=== PATIENT | female | born 1985 | race Caucasian/White ===

== ENCOUNTER 2020-06-29 16:35 | Outpatient (RCR) | payer BC, SELFPAY ==
[2020-05-18 18:02] VITALS: BP 130/75; PULSE 87
[2020-05-24 10:08] VITALS: BP 119/75; PULSE 90
[2020-06-01 10:17] VITALS: BP 119/75; PULSE 90
[2020-06-07 10:22] VITALS: BP 117/71; PULSE 86
[2020-06-14 13:42] VITALS: BP 121/73; PULSE 69
[2020-06-21 11:44] VITALS: BP 127/83; PULSE 83
--- NOTE | ~2020-06-29 | US_ITS ---
EXAMINATION: US OB limited w BPP EXAM DATE: 06/07/2020 10:42 INDICATION: Non reactive stress test for elevated bp's. Check TALIA and biophysical profile. 3rd trime ster. TECHNIQUE: Pelvic obstetrical transabdominal sonogram was performed by a technologist. There are mu ltiple grayscale and Doppler images available for interpretation. There are no earlier studies of th is gestation for comparison. FINDINGS: There is a single fetus identified in vertex presentation with a heart rate of 127 beats pe r minute. The placenta is located in the anterior position. There is no sonographic evidence of retr oplacental hemorrhage identified. Some placental venous lakes. The amniotic fluid index is 18.0 centi meters, which is normal. Cervical canal measures 5.7 cm in length, no funneling. BIOPHYSICAL PROFILE (performed by the technologist) breathing (30 sec sustained breathing in 30 minutes): 2 out of 2 movement (3 gross body movements in 30 minutes): 2 out of 2 tone (one episode of twbjkoz-vrdcyoszh-xcqrzkh limb movement): 2 out of 2 Amniotic fluid pocket (2 cm): 2 out of 2 Total score: 8 out of 8 IMPRESSION: 1. Single fetus with heart rate of 127 bpm. 2. Normal biophysical profile score of 8 out of 8. 3. Normal TALIA 18 cm. Reviewed, dictated and finalized at location A.
--- NOTE | ~2020-06-29 | US_ITS ---
EXAMINATION: US OB follow up w BPP DATE: 06/21/2020 12:17 INDICATION: Gestational hypertension. Third trimester. TECHNIQUE: Real-time pelvic ultrasound was performed. COMPARISON: Ultrasound 06/07/2020 FINDINGS: There is a single living fetus in vertex presentation. The placenta is anterior. heart rate is 144 beats per minute (bpm). The amniotic fluid index is 17.6 cm, which is normal. The following biometric data were obtained: Biparietal diameter (BPD): 9.5 cm; head circumference (HC): 33.9 cm; abdominal circumference (AC): 33 .9 cm; femur length (FL): 7.0 cm. These measurements are concordant. Estimated weight is 3251 g +/- 488 g, which correlates with 75th percentile when 07/13/20 is use d as estimated date of delivery. As single measurements, these parameters are each equal to the following estimated gestational ages: BPD: 38 weeks 4 days. HC: 39 weeks 0 days. AC: 37 weeks 6 days. FL: 35 weeks 6 days. estimated gestational age based solely on measurements from this exam is 37 weeks 6 days +/- 2 weeks 5 days. Biophysical profile performed by the technologist: breathing (30 sec sustained breathing in 30 minutes): 2 out of 2 movement (3 gross body movements in 30 minutes): 2 out of 2 tone (one episode of zfougro-upzseyvpf-ylgdtec limb movement): 2 out of 2 Amniotic fluid pocket (2 cm): 2 out of 2 Total score: 8 out of 8 IMPRESSION: 1. Single living fetus in vertex presentation. 2. Biophysical profile 8 out of 8. 3. Estimated weight is 3251 g +/- 488 g, which correlates with 75th percentile when 07/13/20 is used as estimated date of delivery. Reviewed, dictated and finalized at location A. IMPRESSION: 1. Single living fetus in vertex presentation. 2. Biophysical profile 8 out of 8. 3. Estimated weight is 3251 g +/- 488 g, which correlates with 75th perc entile when 07/13/20 is used as estimated date of delivery.
[2020-06-29 18:02] VITALS: BP 135/78; PULSE 87
== END 2020-07-25 11:50 | disposition home or self-care (01) ==
LOC: ANHOBOP 16:35
PROVIDERS: PCP Obstetrics & Gynecology; Visit Provider Obstetrics & Gynecology
DX: O16.3 Unspecified maternal hypertension, third trimester (principal); Z3A.32 32 weeks gestation of pregnancy; Z3A.34 34 weeks gestation of pregnancy; Z3A.35 35 weeks gestation of pregnancy; Z3A.36 36 weeks gestation of pregnancy; Z3A.38 38 weeks gestation of pregnancy
CPT/HCPCS: 59025; 76815; 76816; 76819

== ENCOUNTER 2020-07-03 17:12 | Inpatient (IN) | payer BC, SELFPAY ==
[2020-07-03] VITALS (12 sets, daily range): BP systolic 125–142; BP diastolic 66–94; PULSE 67–106; RESP 18; TEMP 36.8–37.1; O2SAT 99; BMI 43.9
--- NOTE | 2020-07-03 17:12 | LDADM ---
This patient, Katlin Clarke, was admitted to Labor/Delivery/Recovery 108 on 07/03/20 at 17:12. Plans for labor, pain management and were discussed with patient. Patient/family oriented to hospital policies and general routines including ID bracelet, bed and alarms, visiting hours, pain management, procedures, bathroom and other care routines, personal items, smoking policy, room service/diet and guest tray routines, security routines, and visiting hours. Patient/Family are encouraged to report perceived risks to care and to ask questions if they do not understand what they are told or what they should do. See OBIX for further documentation.
[2020-07-03] MEDS: DINOPROSTONE 10 MG VAG INSERT VAGINAL (17:53)
[2020-07-03 17:58] LABS: Basophils Percent Auto 0.3 % (0.2-1.2); Eosinophils Absolute Auto 0.1 K/mm3 (0-0.3); Eosinophils Percent Auto 0.6 % (0-4.4); Hematocrit 35.9 % (37.0-47.0); Hemoglobin 12.1 g/dL (12.0-15.0); Immature Granulocyte Absolute 0.09 K/mm3 (0.00-0.031); Immature Granulocyte Percent A 0.7 % (0-0.5); Lymphocytes Absolute Auto 3.08 K/mm3 (0.9-3.2); Lymphocytes Percent Auto 25.4 % (18.3-44.2); Mean Corpuscular HGB Conc 33.7 g/dl (32-36); Mean Corpuscular Hemoglobin 29.9 pg (26-34); Mean Corpuscular Volume 88.6 fl (80-100); Mean Platelet Volume 10.9 fl (7.4-10.4); Monocytes Absolute Auto 0.5 K/mm3 (0.1-0.6); Monocytes Percent Auto 4.5 % (2.6-8.5); Neutrophils Absolute Auto 8.3 K/mm3 (1.3-6.7); Neutrophils Percent Auto 68.5 % (45.5-73.1); Platelet Count Result 287 k/mm3 (150-375); Red Blood Count 4.05 M/mm3 (4.2-5.4); Red Cell Distribution Width 12.6 % (11.5-14.5); White Blood Count 12.1 K/mm3 (4.5-10.0)
[2020-07-03 18:07] LABS: Uric Acid 3.9 mg/dL (2.5-7.5)
[2020-07-03 18:30] LABS: Alanine Aminotransferase 14 U/L (4-35); Albumin Level 3.6 g/dL (3.5-5.1); Alkaline Phosphatase 142 U/L (38-126); Anion Gap 6 mmol/L (8-16); Aspartate Amino Transferase 25 U/L (14-36); Bilirubin,Total 0.7 mg/dL (0.2-1.3); Blood Urea Nitrogen 6 mg/dL (7-17); Calcium 10.1 mg/dL (8.4-10.2); Carbon Dioxide 23 mmol/L (22-30); Chloride 106 mmol/L (98-107); Estimated CRCL calculation 176 ml/min; Estimated Glomerular Filt Rate > 60; Glucose 123 mg/dL (65-105); Potassium 3.9 mmol/L (3.4-5.0); Sodium 135 mmol/L (137-145)
[2020-07-03] MEDS: LABETALOL HCL 100 MG TABLET PO (21:47)
[2020-07-04] VITALS (132 sets, daily range): BP systolic 90–154; BP diastolic 42–120; PULSE 67–117; RESP 17–18; TEMP 36.2–36.8; O2SAT 89–100
[2020-07-04] MEDS: LACTATED RINGERS 1,000 ML 125 ML IV CONT ×2 (05:10→14:06)
[2020-07-04] MEDS: OXYTOCIN 30 UNITS/NS 500 ML 30 UNITS/500 ML BAG IV CONT ×2 (05:11→14:05)
[2020-07-04] MEDS: fentaNYL CITRATE INJ (*CRX) 100 MCG/2 ML VIAL 50 MCG IV PUSH (05:18)
--- NOTE | 2020-07-04 05:59 | WPDANESEPP ---
Anes - Eval Pre Procedure Procedure: Labor epidural Date/Time: 07/04/20 05:59 Surgeon: Josias Preop Diagnosis: pain during labor Pre Op Diagnosis: Induction of Labor Patient Data Age: 35 Gender: F Height: 1.68 m Weight: 123.6 kg Last Vital Signs Temp 36.7 C 07/04/20 04:56 Pulse 81 07/04/20 05:45 Resp 18 07/04/20 00:02 BP 136/87 07/04/20 05:45 Pulse Ox 99 07/03/20 21:47 Allergies Allergy/AdvReac Type Severity Reaction Status Date / Time No Known Allergies Allergy Verified 05/18/20 17:07 Home Medications Medication Instructions Recorded Confirmed Type PNV cmb#95-ferrous fumarate-FA 1 tablet PO HS 05/18/20 07/03/20 History [] labetalol 100 mg PO Q12H 05/18/20 07/03/20 History Laboratory Tests 07/03/20 07/03/20 07/03/20 17:46 17:46 17:46 WBC 12.1 K/mm3 H K/mm3 (4.5-10.0) RBC 4.05 M/mm3 L M/mm3 (4.2-5.4) Hgb 12.1 g/dL g/dL (12.0-15.0) Hct 35.9 % L % (37.0-47.0) MCV 88.6 fl fl (80-100) MCH 29.9 pg pg (26-34) MCHC 33.7 g/dl g/dl (32-36) RDW 12.6 % % (11.5-14.5) Plt Count 287 k/mm3 k/mm3 (150-375) MPV 10.9 fl H fl (7.4-10.4) Immature Gran % (Auto) 0.7 % H % (0-0.5) Neut % (Auto) 68.5 % % (45.5-73.1) Lymph % (Auto) 25.4 % % (18.3-44.2) [place] % (Auto) 4.5 % % (2.6-8.5) Eos % (Auto) 0.6 % % (0-4.4) Baso % (Auto) 0.3 % % (0.2-1.2) Lymph # (Auto) 3.08 K/mm3 K/mm3 (0.9-3.2) [place] # (Auto) 0.5 K/mm3 K/mm3 (0.1-0.6) Eos # (Auto) 0.1 K/mm3 K/mm3 (0-0.3) Baso # (Auto) 0.0 K/mm3 K/mm3 (0.0-0.1) Abs Immat Gran (auto) 0.09 K/mm3 H K/mm3 (0.00-0.031) Absolute Neuts (auto) 8.3 K/mm3 H K/mm3 (1.3-6.7) Absolute Nucleated RBC 0.0 K/mm3 K/mm3 (0.0-0.012) Nucleated RBC % 0.0 % % (0.0-0.2) Sodium Potassium Chloride Carbon Dioxide Anion Gap BUN Creatinine Estim Creat Clear Calc Estimated GFR Glucose Uric Acid 3.9 mg/dL mg/dL (2.5-7.5) Calcium Total Bilirubin AST ALT Alkaline Phosphatase Total Protein Albumin RPR Pending Blood Type Antibody Screen 07/03/20 07/03/20 17:46 17:46 WBC RBC Hgb Hct MCV MCH MCHC RDW Plt Count MPV Immature Gran % (Auto) Neut % (Auto) Lymph % (Auto) [place] % (Auto) Eos % (Auto) Baso % (Auto) Lymph # (Auto) [place] # (Auto) Eos # (Auto) Baso # (Auto) Abs Immat Gran (auto) Absolute Neuts (auto) Absolute Nucleated RBC Nucleated RBC % Sodium 135 mmol/L L mmol/L (137-145) Potassium 3.9 mmol/L mmol/L (3.4-5.0) Chloride 106 mmol/L mmol/L (98-107) Carbon Dioxide 23 mmol/L mmol/L (22-30) Anion Gap 6 mmol/L L mmol/L (8-16) BUN 6 mg/dL L mg/dL (7-17) Creatinine 0.50 mg/dL L mg/dL (0.7-1.0) Estim Creat Clear Calc 176 ml/min ml/min Estimated GFR > 60 (59 - ) Glucose 123 mg/dL H mg/dL (65-105) Uric Acid Calcium 10.1 mg/dL mg/dL (8.4-10.2) Total Bilirubin 0.7 mg/dL mg/dL (0.2-1.3) AST 25 U/L U/L (14-36) ALT 14 U/L U/L (4-35) Alkaline Phosphatase 142 U/L H U/L (38-126) Total Protein 7.0 g/dL g/dL (6.3-8.2) Albumin 3.6 g/dL g/dL (3.5-5.1) RPR Blood Type O Positive Antibody Screen Negative Patient hx anesthesia problems: none Family hx anes
--- NOTE | 2020-07-04 08:38 | WPDOBADMIT ---
Obstetrics - Admit Note Admission Note: record reviewed. Additions to the history and/or subsequent changes in the physical findings follow. 35 y/o at 38 5/7 weeks here for induction of labor. Has CHTN with worsening bp control. No headache, no visual field change. No epigastric or RUQ pain. IVF . GBS neg. EFW 7#11oz three weeks ago. Cervidil overnight, has been withdrawn. AVSS NST reactive TOCO: contractions every 2-4 min ABD soft, nontender, gravid, vertex EXT nontender Cervix 3/80/-2. AROM witih clear fluid. IUPC placed. A: IUP at 38 5/7 weeks with CHTN, worsening bp control, here for induction of labor. P: Cervidil has been withdrawn. Oxytocin running. Anticipate .
[2020-07-04] MEDS: LABETALOL HCL 100 MG TABLET PO ×2 (08:59→21:02)
--- NOTE | 2020-07-04 11:56 | PM.OBPNLAB ---
Pain Control Date/time seen: 07/04/20 11:56 Comments: Comfortable with epidural Pelvic Exam Dilation (cm): 7 Effacement (%): 100 station: 0 Contractions Contraction frequency: 3 Contraction pattern: Regular Status status: Category l Assessment and Plan Comments: Continue labor.
--- NOTE | 2020-07-04 13:46 | PM.OBPRVD ---
OB - Delivery Note Procedure Delivery date: 07/04/20 Procedure: Induction of labor with Excision of vulvar skin tags x 4 Induction method: per pitocin protocol and per cervidil protocol Delivery augmentation: rupture of membranes Delivery monitor: external FHT, external uterine and internal uterine Route of delivery: Delivery repair: vicryl (3-0) Specimen: Yes (cord blood, placenta, perineal skin tags x 4) Quantitative Blood Loss (ml): 95 Anesthesia type: Epidural Disposition: PACU Complications: None Narrative: 35 y/o at 38 5/7 weeks gestation who presented to the hospital for induction of labor. Cervidil was placed overnight, was withdrawn the next morning. Oxytocin was administered intravenously. Amniotomy was performed with return of clear fluid. She received an epidural for pain control. Her labor progressed and her cervix dilated completely. She pushed with good effort and delivered the 's head to the perineum, followed by the body. The nose and mouth were bulb suctioned. After a delay, the cord was clamped and cut. The was handed off the field. Cord blood was collected. The placenta delivered spontaneously and was grossly normal in appearance. The usual 3 vessel cord was noted. A distal vaginal laceration was sustained. This was reapproximated using 3 0 Vicryl in the usual layered fashion. Excellent hemostasis resulted as did excellent reapproximation of the normal anatomy. Four vulvar skin tags (two were 2mm x 2mm, two were 4mm x 2mm) were sharply excised. The two larger defects required one interrupted suture of 3 0 Vicryl. Needle and instrument counts were correct. The patient was taken to recovery room in stable condition. The went to the nursery in stable condition. I was present and scrubbed for the entire delivery. Baby Date of : 07/04/20 Time of : 13:25 Weeks of gestation at delivery: 38 gender: Female Weight (pounds): 8 Weight (ounces): 15 presentation: vertex position: Right Occiput Anterior Placenta delivery description: Spontaneous and Normal Configuration cord vessel description: 3 Vessels and Delayed Cord Clamping score one minute: 9 score five minutes: 9
--- NOTE | 2020-07-04 13:51 | PM.OBDSVD ---
DS: Admitting Diagnosis Admitting Diagnosis Admitting Diagnosis: IUP at 38 5/7 weeks Chronic HTN with worsening bp control DS: Discharge Diagnosis Discharge Diagnosis (1) (normal spontaneous vaginal delivery): Code(s): O80 - Encounter for full-term uncomplicated delivery Status: Acute (2) Skin tag of vulva: Code(s): N90.89 - Other specified noninflammatory disorders of vulva and perineum Status: Acute OB - DS: Summary OB Procedures : None OB Procedures Intrapartum: Spontaneous Vag Delivery OB Procedures: : None Time Spent with Patient Time attestation: Total time spent providing and/or coordinating discharge services: DS: Data Data Completed and Pending Labs on day of discharge: Labs from last 24 hours 07/03/20 07/03/20 07/03/20 17:46 17:46 17:46 WBC RBC Hgb Hct MCV MCH MCHC RDW Plt Count MPV Immature Gran % (Auto) Neut % (Auto) Lymph % (Auto) [place] % (Auto) Eos % (Auto) Baso % (Auto) Lymph # (Auto) [place] # (Auto) Eos # (Auto) Baso # (Auto) Abs Immat Gran (auto) Absolute Neuts (auto) Absolute Nucleated RBC Nucleated RBC % Sodium 135 L Potassium 3.9 Chloride 106 Carbon Dioxide 23 Anion Gap 6 L BUN 6 L Creatinine 0.50 L Estim Creat Clear Calc 176 Estimated GFR > 60 Glucose 123 H Uric Acid Calcium 10.1 Total Bilirubin 0.7 AST 25 ALT 14 Alkaline Phosphatase 142 H Total Protein 7.0 Albumin 3.6 RPR Pending Blood Type O Positive Antibody Screen Negative 07/03/20 07/03/20 17:46 17:46 WBC 12.1 H RBC 4.05 L Hgb 12.1 Hct 35.9 L MCV 88.6 MCH 29.9 MCHC 33.7 RDW 12.6 Plt Count 287 MPV 10.9 H Immature Gran % (Auto) 0.7 H Neut % (Auto) 68.5 Lymph % (Auto) 25.4 [place] % (Auto) 4.5 Eos % (Auto) 0.6 Baso % (Auto) 0.3 Lymph # (Auto) 3.08 [place] # (Auto) 0.5 Eos # (Auto) 0.1 Baso # (Auto) 0.0 Abs Immat Gran (auto) 0.09 H Absolute Neuts (auto) 8.3 H Absolute Nucleated RBC 0.0 Nucleated RBC % 0.0 Sodium Potassium Chloride Carbon Dioxide Anion Gap BUN Creatinine Estim Creat Clear Calc Estimated GFR Glucose Uric Acid 3.9 Calcium Total Bilirubin AST ALT Alkaline Phosphatase Total Protein Albumin RPR Blood Type Antibody Screen Discharge Plan Discharge Attending physician on discharge: Elliott Ferrara Discharging Clinician: Elliott Ferrara Patient Disposition: Home, Self-Care Activity: pelvic rest Diet: regular Discharge Instructions: Call or return if temperature above 100.4? F, increased abdominal pain, increased vaginal bleeding or any new problems. Stand Alone Forms: General Discharge Information Follow-up/Referrals: Elliott Ferrara MD [Primary Care Provider] - 6 Weeks Discharge Medications: New ibuprofen 600 mg tablet 600 mg PO Q6H PRN (Reason: cramps) Qty: 30 RF: 0 Continued labetalol 100 mg Tablet 100 mg PO Q12H RF: 0 PNV cmb#95-ferrous fumarate-FA [] 28 mg iron- 800 mcg Tablet 1 tablet PO HS RF: 0 Date of admission: 07/03/20 17:12 Primary Care Provider: Elliott Ferrara Admitting Provider: Elliott Ferrara Attending physician on admission: Elliott Ferrara Condition: Stable
[2020-07-04] MEDS: WITCH HAZEL 40 PADS 1 PAD TOPICAL (15:25)
[2020-07-04] MEDS: BENZOCAINE 20% AER SPR (*SP) 56 GM CAN 1 SPRAY TOPICAL (15:26)
--- NOTE | 2020-07-04 16:56 | OBPPTRN ---
1555 Patient transferred to post room #282 via W/C. Support person present. Oriented to unit, room, information board, rooming in, admission packet and security measures. Patient verbalizes understanding.
[2020-07-04] MEDS: IBUPROFEN 600 MG TABLET PO (21:01)
[2020-07-05 05:30] VITALS: BP 140/95; PULSE 78; RESP 18; TEMP 37
[2020-07-05 05:47] LABS: Hematocrit 32.8 % (37.0-47.0); Hemoglobin 10.6 g/dL (12.0-15.0)
[2020-07-05 07:45] VITALS: BP 142/87; PULSE 80; RESP 16; TEMP 36.6; O2SAT 99
[2020-07-05 08:21] VITALS: PULSE 96
[2020-07-05] MEDS: LABETALOL HCL 100 MG TABLET PO ×2 (08:21→21:06)
[2020-07-05] MEDS: MULTIVIT/MIN/PREN/FOL AC/IRON TABLET 1 TAB PO (08:21)
[2020-07-05] MEDS: DOCUSATE SODIUM 100 MG CAPSULE PO (08:21)
[2020-07-05] MEDS: IBUPROFEN 600 MG TABLET PO ×3 (08:22→22:13)
--- NOTE | 2020-07-05 08:55 | PM.OBPNVD ---
OB - PN: Subj Subjective Date/time seen: 07/05/20 13:25 Narrative: Pain OK. OB - PN: Obj Data Labs CBC & Chem 7: 07/05/20 05:36 07/03/20 17:46 Labs: Laboratory Results - last 24 hr 07/03/20 05 17:46 05:36 Hgb 10.6 L Hct 32.8 L RPR Non-reactive OB - PN A/P Plan Comments: A: PPD#1, doing well. P: Routine care. Exam Psych: Other: AVSS ABD soft, nontender, fundus firm EXT nontender
[2020-07-05 10:20] LABS: Rapid Plasma Reagin Non-Reactive (NonReactive)
--- NOTE | 2020-07-05 10:54 | WPDANLDPN2 ---
Anes-Prog Note L&D Date/Time: 07/05/20 10:54 Comfortable throughout: labor and delivery Neuraxial method: epidural Epidural/Spinal procedure site: clean & non-tender Neuro status: Neuro function grossly intact. Cardiovascular status: normal Respiratory status: normal Airway patency: baseline Mental status: baseline Post-Op hydration status: normal Vital Signs: Last Vital Signs Temp 36.6 C 07/05/20 07:45 Pulse 96 07/05/20 08:21 Resp 16 07/05/20 07:45 BP 142/87 H 07/05/20 07:45 Pulse Ox 99 07/05/20 07:45 Pain score (VAS): 0/10. Patient resting in bed at time of assessment, appears comfortable. Support person at bedside. I/O: Intake & Output 07/04/20 07/05/20 07/05/20 23:59 07:59 15:59 Intake Total 1000 1000 Output Total 75 1150 Balance 925 -150 Post-procedural complaints: none Patient feedback: Patient satisfied with anesthetic care.
[2020-07-05 12:30] VITALS: BP 139/73; PULSE 82; RESP 16; TEMP 37.3; O2SAT 99
--- NOTE | 2020-07-05 12:30 | PC.NURSE ---
Consult with pt., mother reports she would like to initiate pumping. Mother did not attempt first child to breast, mother attempted this child a few times and does not like and would like to give infant EBM. Breast pump provided due to mother's wishes. Instructions given on breast pump care and usage, pumping schedule, nipple care, and collection and storage of breast milk. Encouraged [id number], breast massage and manual expression to stimulate supply. Pumping log provided and reviewed. Assessed patient for correct flange size, placement and draw. Patient verbalizes and demonstrates understanding of instructions.
[2020-07-05 14:45] VITALS: BP 134/79; PULSE 86; RESP 18; TEMP 36.9; O2SAT 98
--- NOTE | 2020-07-05 16:17 | PC.NURSE ---
Patient and FOB viewed the discharge video Mother & Baby Care, The First Two Weeks . Patient was given the opportunity and encouraged to ask questions. Patient verbalized understanding of information shared and has been given the mother/baby guide for home reference.
[2020-07-05 21:06] VITALS: BP 132/86; PULSE 74; PULSE 81; RESP 16; TEMP 36.8
[2020-07-06 08:25] VITALS: BP 135/80; PULSE 83; RESP 16; TEMP 36.8; O2SAT 99
[2020-07-06] MEDS: DOCUSATE SODIUM 100 MG CAPSULE PO (08:42)
[2020-07-06] MEDS: MULTIVIT/MIN/PREN/FOL AC/IRON TABLET 1 TAB PO (08:42)
[2020-07-06] MEDS: IBUPROFEN 600 MG TABLET PO (08:42)
[2020-07-06 08:44] VITALS: PULSE 81
[2020-07-06] MEDS: LABETALOL HCL 100 MG TABLET PO (08:44)
--- NOTE | 2020-07-06 08:58 | PM.OBPNVD ---
OB - PN: Subj Subjective Date/time seen: 07/06/20 08:58 Narrative: Pain OK. Would like to go home. OB - PN: Obj Data Labs CBC & Chem 7: 07/05/20 05:36 07/03/20 17:46 Labs: Laboratory Results - last 24 hr 07/03/20 17:46 RPR Non-reactive OB - PN A/P Plan Comments: A: PPD#2, doing well. P: Home to f/u 6 weeks. Exam Psych: Other: AVSS ABD soft, nontender, fundus firm EXT nontender
[2020-07-07 10:36] VITALS: BP 140/81; PULSE 75; RESP 20; TEMP 37.1; O2SAT 100
== END 2020-07-06 11:30 | disposition home or self-care (01) | DRG 806 ==
LOC: ANHLDR 07-04 13:53 → ANHOB2 07-04 15:58
PROVIDERS: Admitting Provider Obstetrics & Gynecology; PCP Obstetrics & Gynecology; Visit Provider Obstetrics & Gynecology
DX: O10.92 Unspecified pre-existing hypertension complicating childbirth (principal); O71.4 Obstetric high vaginal laceration alone; N90.89 Other specified noninflammatory disorders of vulva and perineum; Z37.0 Single live birth; Z3A.38 38 weeks gestation of pregnancy
CPT/HCPCS: 36415; 80053; 84550; 85014; 85018; 85025; 86592; 86850; 86900; 86901; 88305; 88307; A9270; J2590; J2795; J3010; J7120

== ENCOUNTER 2022-12-03 18:09 | Inpatient (IN) | payer BC, SELFPAY ==
[2022-12-03 18:47] VITALS: BMI 41.9
--- NOTE | 2022-12-03 18:47 | LDADM ---
This patient, Katlin Clarke, was admitted to Labor/Delivery/Recovery 106 on 12/03/22 at 18:09. Plans for labor, pain management and were discussed with patient. Patient/family oriented to hospital policies and general routines including ID bracelet, bed and alarms, visiting hours, pain management, procedures, bathroom and other care routines, personal items, smoking policy, room service/diet and guest tray routines, security routines, and visiting hours. Patient/Family are encouraged to report perceived risks to care and to ask questions if they do not understand what they are told or what they should do. See OBIX for further documentation.
[2022-12-03] MEDS: DINOPROSTONE 10 MG VAG INSERT VAGINAL (19:04)
[2022-12-03 19:12] LABS: Basophils Percent Auto 0.4 % (0.2-1.2); Eosinophils Absolute Auto 0.1 K/mm3 (0-0.3); Eosinophils Percent Auto 0.6 % (0-4.4); Hematocrit 36.3 % (37.0-47.0); Hemoglobin 11.9 g/dL (12.0-15.0); Immature Granulocyte Absolute 0.05 K/mm3 (0.00-0.031); Immature Granulocyte Percent A 0.5 % (0-0.5); Lymphocytes Absolute Auto 2.65 K/mm3 (0.9-3.2); Lymphocytes Percent Auto 26.1 % (18.3-44.2); Mean Corpuscular HGB Conc 32.8 g/dl (32-36); Mean Corpuscular Hemoglobin 29.3 pg (26-34); Mean Corpuscular Volume 89.4 fl (80-100); Mean Platelet Volume 11.6 fl (7.4-10.4); Monocytes Absolute Auto 0.6 K/mm3 (0.1-0.6); Monocytes Percent Auto 5.4 % (2.6-8.5); Neutrophils Absolute Auto 6.8 K/mm3 (1.3-6.7); Platelet Count Result 286 k/mm3 (150-375); Red Blood Count 4.06 M/mm3 (4.2-5.4); Red Cell Distribution Width 12.8 % (11.5-14.5); White Blood Count 10.2 K/mm3 (4.5-10.0)
[2022-12-03 19:21] LABS: Alanine Aminotransferase 16 U/L (6-35); Albumin Level 3.6 g/dL (3.5-5.1); Alkaline Phosphatase 138 U/L (38-126); Anion Gap 7 mmol/L (8-16); Aspartate Amino Transferase 23 U/L (14-36); Blood Urea Nitrogen 7 mg/dL (7-17); Carbon Dioxide 23 mmol/L (22-30); Chloride 104 mmol/L (98-107); Estimated CRCL calculation 143 ml/min; Estimated Glomerular Filt Rate > 60; Glucose 102 mg/dL (65-110); Sodium 134 mmol/L (137-145)
[2022-12-03 19:22] VITALS: BP 127/70; PULSE 92
[2022-12-03 20:00] VITALS: BP 130/77; PULSE 76
[2022-12-03 21:00] VITALS: BP 134/85; PULSE 98
[2022-12-03 21:42] VITALS: PULSE 88
[2022-12-03] MEDS: LABETALOL HCL 100 MG TABLET 200 MG PO (21:42)
[2022-12-03 22:00] VITALS: BP 133/82; PULSE 87
[2022-12-03 23:00] VITALS: BP 101/49; PULSE 76
[2022-12-04] VITALS (89 sets, daily range): BP systolic 84–148; BP diastolic 38–102; PULSE 63–101; RESP 16–18; TEMP 36.1–36.7; O2SAT 96–100
[2022-12-04] MEDS: LACTATED RINGERS 1,000 ML 125 ML IV CONT ×2 (05:29→10:17)
[2022-12-04] MEDS: OXYTOCIN 30 UNITS/NS 500 ML 30 UNITS/500 ML BAG IV CONT (05:30)
--- NOTE | 2022-12-04 08:45 | WPDOBADMIT ---
Obstetrics - Admit Note Admission Note: record reviewed. Additions to the history and/or subsequent changes in the physical findings follow. 37 y/o at 38 6/7 weeks with chronic hypertension, on labetalol. GBS neg. Feeling some contractions. AVSS NST reactive TOCO: irregular contractions ABD soft, nontender, gravid, vertex EXT nontender Cervix 3/80/-2. AROM with clear fluid. A: IUP at 38 6/7 weeks with CHTN, here for induction. P: Cervidil overnight, has been removed. Now receiving oxytocin. Anticipate .
--- NOTE | 2022-12-04 10:07 | WPDANESEPPF ---
Anes - Initial Pre Proc Eval Procedure: Labor epidural Date/Time: 12/04/22 10:07 Surgeon: Elliott Ferrara MD Pre Op Diagnosis: Pain during labor Pre Op Diagnosis: IOL Patient Data Age: 37 Gender: F Height: 1.68 m Weight: 117.934 kg Last Vital Signs Temp 36.7 C 12/04/22 10:00 Pulse 88 12/04/22 10:05 Resp 16 12/04/22 05:15 BP 112/76 12/04/22 10:05 Pulse Ox 98 12/04/22 10:06 O2 Del Method Room Air 12/03/22 18:47 Allergies Allergy/AdvReac Type Severity Reaction Status Date / Time No Known Allergies Allergy Verified 05/18/20 17:07 Home Medications Medication Instructions Recorded Confirmed Type labetalol 100 mg tablet 200 mg PO Q12H 05/18/20 12/03/22 History vit no.95-ferrous 1 tablet PO HS 05/18/20 12/03/22 History fumarate 28 mg-folic acid 800 mcg tablet () aspirin 81 mg tablet 81 mg PO DAILY 12/03/22 12/03/22 History Laboratory Tests 12/03/22 18:26 WBC 10.2 H K/mm3 (4.5-10.0) RBC 4.06 L M/mm3 (4.2-5.4) Hgb 11.9 L g/dL (12.0-15.0) Hct 36.3 L % (37.0-47.0) MCV 89.4 fl (80-100) MCH 29.3 pg (26-34) MCHC 32.8 g/dl (32-36) RDW 12.8 % (11.5-14.5) Plt Count 286 k/mm3 (150-375) MPV 11.6 H fl (7.4-10.4) Immature Gran % (Auto) 0.5 % (0-0.5) Neut % (Auto) 67.0 % (45.5-73.1) Lymph % (Auto) 26.1 % (18.3-44.2) [place] % (Auto) 5.4 % (2.6-8.5) Eos % (Auto) 0.6 % (0-4.4) Baso % (Auto) 0.4 % (0.2-1.2) Lymph # (Auto) 2.65 K/mm3 (0.9-3.2) [place] # (Auto) 0.6 K/mm3 (0.1-0.6) Eos # (Auto) 0.1 K/mm3 (0-0.3) Baso # (Auto) 0.0 K/mm3 (0.0-0.1) Abs Immat Gran (auto) 0.05 H K/mm3 (0.00-0.031) Absolute Neuts (auto) 6.8 H K/mm3 (1.3-6.7) Absolute Nucleated RBC 0.0 K/mm3 (0.0-0.012) Nucleated RBC % 0.0 % (0.0-0.2) Sodium 134 L mmol/L (137-145) Potassium 4.0 mmol/L (3.4-5.0) Chloride 104 mmol/L (98-107) Carbon Dioxide 23 mmol/L (22-30) Anion Gap 7 L mmol/L (8-16) BUN 7 mg/dL (7-17) Creatinine 0.60 L mg/dL (0.7-1.0) Estim Creat Clear Calc 143 ml/min Estimated GFR > 60 (59 - ) Glucose 102 mg/dL (65-110) Uric Acid 4.0 mg/dL (2.5-7.5) Calcium 9.0 mg/dL (8.4-10.2) Total Bilirubin 1.0 mg/dL (0.2-1.3) AST 23 U/L (14-36) ALT 16 U/L (6-35) Alkaline Phosphatase 138 H U/L (38-126) Total Protein 7.0 g/dL (6.3-8.2) Albumin 3.6 g/dL (3.5-5.1) RPR Pending Blood Type O Positive Antibody Screen Negative Patient hx anesthesia problems: none Family hx anesthesia problems: none Results Review: All pre-operative results and documents have been reviewed as part of the pre-operative evaluation. [facility] Past Medical History Medical History Gestational HTN IUP (intrauterine ), incidental Morbid obesity with BMI of 40.0-44.9, adult Family History Family History Mother Scoliosis Hypertension Father COPD (chronic obstructive pulmonary disease) Social History Social History Smoking status: Never smoker Second hand tobacco smoke exposure: No Substance use: never Lack of Transportation: No Lack of Food: Never True Current Housing: I Have Housing Concerned About Future Housing: No Difficulty Paying Gas/Electric Bills: No Difficulty Paying for Meds: No Currently Unemployed: No Education: Trade/Vocational Certificate Difficulty w/ Childcare or Family Care: No Gender identity (if verbalized by the patient): Female Spiritual care concerns: No Anes - Eval Final PreProcedure Day of Procedure 12/04/22 10:07 Patient weight: morbidly obese Heart: regular rate and rhythm Lungs: clear to auscultation Airway: Vin
[2022-12-04 10:43] LABS: Rapid Plasma Reagin Non-Reactive (NonReactive)
--- NOTE | 2022-12-04 11:54 | PM.OBPRVD ---
OB - Delivery Note Procedure Delivery date: 12/04/22 Procedure: Induction of labor with Events: Chronic Hypertension Induction method: Per Cervidil Protocol Delivery augmentation: Rupture of Membranes and Pitocin Delivery monitor: External FHT and External Uterine Route of delivery: Laceration Description: None Specimen: Yes (cord blood) Quantitative Blood Loss (ml): 120 Anesthesia type: Epidural Disposition: PACU Complications: None Narrative: 37 y/o at 38 6/7 weeks gestation who presented to the hospital for induction of labor. Cervidil was placed overnight, then withdrawn the next morning. Oxytocin was administered intravenously. Amniotomy was performed with return of clear fluid. She received an epidural for pain control. Her labor progressed and her cervix dilated completely. She pushed with good effort and delivered the 's head to the perineum. A loose nuchal cord was splinted and the body delivered. The cord was reduced. The nose and mouth were bulb suctioned. After a delay, the cord was clamped and cut. The was handed off the field. Cord blood was collected. The placenta delivered spontaneously and was grossly normal in appearance. The usual 3 vessel cord was noted. There were no lacerations. Needle and instrument counts were correct. The patient was taken to recovery room in stable condition. The went to the nursery in stable condition. I was present and scrubbed for the entire delivery. [place] Baby Date of : 12/04/22 Time of : 11:37 Weeks of gestation at delivery: 38 Infant gender: Female Weight (pounds): 8 Weight (ounces): 13 presentation: vertex position: Right Occiput Anterior Placenta delivery description: Spontaneous and Normal Configuration Cord Vessel Description: 3 Vessels, Nuchal Cord and Delayed Cord Clamping score one minute: 8 score five minutes: 9
--- NOTE | 2022-12-04 11:56 | PM.OBDSVD ---
DS: Admitting Diagnosis Discharge Date 12/06/22 Admitting Diagnosis IUP at 38 6/7 weeks Chronic hypertension DS: Discharge Diagnosis Discharge Diagnosis (1) (normal spontaneous vaginal delivery): Code(s): O80 - Encounter for full-term uncomplicated delivery Status: Acute (2) Chronic hypertension affecting : Code(s): O10.919 - Unspecified pre-existing hypertension complicating , unspecified trimester Status: Acute OB - DS: Summary OB Procedures : None OB Procedures Intrapartum: Spontaneous Vag Delivery OB Procedures: : None Time Spent with Patient Time attestation: Total time spent providing and/or coordinating discharge services: DS: Data Data Completed and Pending Labs on day of discharge: Labs from last 24 hours 12/03/22 18:26 WBC 10.2 H RBC 4.06 L Hgb 11.9 L Hct 36.3 L MCV 89.4 MCH 29.3 MCHC 32.8 RDW 12.8 Plt Count 286 MPV 11.6 H Immature Gran % (Auto) 0.5 Neut % (Auto) 67.0 Lymph % (Auto) 26.1 [place] % (Auto) 5.4 Eos % (Auto) 0.6 Baso % (Auto) 0.4 Lymph # (Auto) 2.65 [place] # (Auto) 0.6 Eos # (Auto) 0.1 Baso # (Auto) 0.0 Abs Immat Gran (auto) 0.05 H Absolute Neuts (auto) 6.8 H Absolute Nucleated RBC 0.0 Nucleated RBC % 0.0 Sodium 134 L Potassium 4.0 Chloride 104 Carbon Dioxide 23 Anion Gap 7 L BUN 7 Creatinine 0.60 L Estim Creat Clear Calc 143 Estimated GFR > 60 Glucose 102 Uric Acid 4.0 Calcium 9.0 Total Bilirubin 1.0 AST 23 ALT 16 Alkaline Phosphatase 138 H Total Protein 7.0 Albumin 3.6 RPR Non-reactive Blood Type O Positive Antibody Screen Negative Discharge Plan Discharge Attending physician on discharge: Elliott Ferrara Discharging Clinician: Elliott Ferrara Patient Disposition: Home, Self-Care Activity: pelvic rest Diet: regular Discharge Instructions: Call or return if temperature above 100.4? F, increased abdominal pain, increased vaginal bleeding or any new problems. Stand Alone Forms: General Discharge Information Follow-up/Referrals: Elliott Ferrara MD [Physician] - 6 Weeks Discharge Medications: New ibuprofen 600 mg tablet 600 mg PO Q6H PRN (Reason: cramps) Qty: 30 0RF Continued labetalol 100 mg Tablet 200 mg PO Q12H PNV cmb#[id number]-ferrous fumarate-FA [] 28 mg iron- 800 mcg Tablet 1 tablet PO HS Discontinued Adult Low Dose Aspirin 81 mg Tablet 81 mg PO DAILY Date of admission: 12/03/22 18:09 Primary Care Provider: PHYSICIAN NOT ON STAFF,NONSTAFF Admitting Provider: Elliott Ferrara Attending physician on admission: Elliott Ferrara Condition: Stable
[2022-12-04] MEDS: OXYTOCIN 30 UNITS/NS 500 ML 30 UNITS/500 ML BAG 125 UNITS IV CONT (12:15)
[2022-12-04] MEDS: WITCH HAZEL 40 PADS 1 PAD TOPICAL (14:20)
--- NOTE | 2022-12-04 14:36 | OBPPTRN ---
Patient transferred to post room # 282 via wheelchair accompanied by spouse and . Support person present. PT introductions made and plan of care discussed per post , pain management, breast feeding, daily care activities. PT and spouse both recipients of such instructions and no barriers to learning identified at this time. PT received such instructions this shift via one to one discussion, mom baby care guide and demonstrations. PT Oriented to unit, room, information board, rooming in, admission packet and security measures. Patient verbalizes understanding.
[2022-12-04] MEDS: LABETALOL HCL 100 MG TABLET 200 MG PO ×2 (16:06→22:29)
[2022-12-04] MEDS: DOCUSATE SODIUM 100 MG CAPSULE PO (16:07)
[2022-12-04] MEDS: IBUPROFEN 600 MG TABLET PO ×2 (16:08→22:30)
[2022-12-04] MEDS: ACETAMINOPHEN 325 MG TABLET 650 MG PO ×2 (16:09→22:30)
[2022-12-04] MEDS: LANOLIN (LANSINOH) 7.5 GM CREAM 1 APPLIC TOPICAL (16:11)
[2022-12-05 03:42] VITALS: BP 130/81; PULSE 68; RESP 18; TEMP 36.2; O2SAT 99
[2022-12-05 04:59] LABS: Hematocrit 33.6 % (37.0-47.0); Hemoglobin 10.9 g/dL (12.0-15.0)
[2022-12-05 08:10] VITALS: BP 113/66; PULSE 57; RESP 16; TEMP 36.5; O2SAT 100
--- NOTE | 2022-12-05 09:00 | PC.NURSE ---
PT introductions made and plan of care discussed per post , pain management, breast feeding, daily care activities. PT and spouse both recipients of such instructions and no barriers to learning identified at this time. PT received such instructions per one to one discussion, mom baby care guide and demonstrations this shift. PT verbalized understanding of such care.
--- NOTE | 2022-12-05 09:31 | WPDANLDPN2 ---
Anes-Prog Note L&D Date/Time: 12/05/22 09:31 Comfortable throughout: labor and delivery Neuraxial method: epidural Epidural/Spinal procedure site: clean & non-tender Neuro status: Neuro function grossly intact. Cardiovascular status: normal Respiratory status: normal Airway patency: baseline Mental status: baseline Post-Op hydration status: normal Vital Signs: Last Vital Signs Temp 36.2 C L 12/05/22 03:42 Pulse 68 12/05/22 03:42 Resp 18 12/05/22 03:42 BP 130/81 12/05/22 03:42 Pulse Ox 99 12/05/22 03:42 O2 Del Method Room Air 12/04/22 19:41 Pain score (VAS): 03/05 Post-procedural complaints: none Patient feedback: Patient satisfied with anesthetic care.
[2022-12-05 10:30] VITALS: PULSE 60; RESP 16; O2SAT 100
[2022-12-05] MEDS: IBUPROFEN 600 MG TABLET PO ×2 (10:35→17:26)
[2022-12-05] MEDS: MULTIVIT/MIN/PREN/FOL AC/IRON TABLET 1 TAB PO (10:36)
[2022-12-05] MEDS: ACETAMINOPHEN 325 MG TABLET 650 MG PO ×2 (10:36→17:25)
[2022-12-05 10:37] VITALS: PULSE 60
[2022-12-05] MEDS: LABETALOL HCL 100 MG TABLET 200 MG PO ×2 (10:37→20:36)
[2022-12-05] MEDS: DOCUSATE SODIUM 100 MG CAPSULE PO ×2 (10:37→17:26)
--- NOTE | 2022-12-05 16:04 | PC.NURSE ---
[id number] Introductions were made, then consulted with patient to assess needs related to . Mother led the conversation with her?plans to feed?her infant and the?experience so far. Mother works well with her with encouragement and education. Encouraged understanding of the benefits of skin to skin (demonstrating unwrapping and placing upright on her chest), stimulating with massage touch, changing positions to encourage wakefulness, how to watch for early feeding cues, responsive feeding, feeding on demand (aiming for 8-12 times in 24 hours, about every 2-3 hours), milk production, building/maintaining a milk supply, duration of feeding, signs of adequate intake/output and how to record on the feeding sheet. Reviewed positioning and ear, shoulder, hip alignment, supporting the breast to facilitate a deep latch, asymmetrical latch (off-center), leading with the chin with a big, open, wide gape and body close to mother. Infant latched optimally to the left breast in football position. Education given to mother of how to visualize suck/swallow and listen for drinking at the breast. Infant was able to maintain latch without discomfort to mother. There were several attempts as infant at times would latch shallow and hurt mother's nipple. Nipple care reviewed with optimal latch and good positioning. We practiced latching to the right breast using cross cradle and settled an optimal latch to the right breast using the football hold. Mother denied pain. Reminding mother of comfort measures of healing with a warm and wet washcloth to rinse breast, then leave open to air-dry as needed. Reviewed with mother how to visualize swallowing, how to detach if there's pain, latching deeply changing positioning for comfort and more swallowing for the . Reviewed good handwashing when or touching the breast/nipples to prevent infection. Resources used to facilitate learning were used with the tool, mom and baby guide. Mother voiced understanding of skin to skin, stimulating with massage touch, responsive feedings, talking to to encourage if it has been 2 -2.5 hours since the start of the last , to call if does not latch, or if there is discomfort with . Resources provided for inpatient/outpatient with feeding sheet, the name written on the communication board and the mom/baby guide. Parents voiced understanding of information, demonstrated learning and will call if there is a request for assistance. Reported to the Primary RN.
--- NOTE | 2022-12-05 16:10 | PC.NURSE ---
1500 - 1515 mother requested a flange fit with her personal pump. Patient was assessed for correct placement, flange size, to pump for comfort and nipple stretching/stimulation for adequate milk production every 3 hours (8 times in 24 hours) 1-2 times at night. Mother voiced understanding of the education shared along with mom and baby guide for additional resource information. Reported to the primary RN.
--- NOTE | 2022-12-05 17:24 | P.PNOB_ITS ---
OB - PN: Subj Subjective Date/time seen: 12/05/22 1300 Narrative: Pain OK. OB - PN: Obj Data Labs 12/05/22 03:15 12/03/22 18:26 Labs: Laboratory Results - last 24 hr 12/05/22 03:15 Hgb 10.9 L Hct 33.6 L OB - PN A/P Assessment and Plan (1) (normal spontaneous vaginal delivery): Code(s): O80 - Encounter for full-term uncomplicated delivery Status: Acute (2) Chronic hypertension affecting : Code(s): O10.919 - Unspecified pre-existing hypertension complicating , unspec ified trimester Status: Acute Plan day: 1 Comments: A: PPD#1, doing well. BP stable on labetalol 200 mg po bid. P: Routine care. Exam Psych: Other: AVSS ABD soft, nontender, fundus firm EXT nontender
[2022-12-05 20:35] VITALS: BP 142/74; PULSE 61; RESP 18; TEMP 36.3
[2022-12-06] MEDS: IBUPROFEN 600 MG TABLET PO ×2 (00:13→08:49)
[2022-12-06] MEDS: ACETAMINOPHEN 325 MG TABLET 650 MG PO ×2 (00:14→08:50)
[2022-12-06 08:25] VITALS: BP 131/78; PULSE 73; RESP 16; TEMP 36.7; O2SAT 100
[2022-12-06] MEDS: MULTIVIT/MIN/PREN/FOL AC/IRON TABLET 1 TAB PO (08:49)
[2022-12-06] MEDS: DOCUSATE SODIUM 100 MG CAPSULE PO (08:50)
[2022-12-06 08:51] VITALS: PULSE 68
[2022-12-06] MEDS: LABETALOL HCL 100 MG TABLET 200 MG PO (08:51)
--- NOTE | 2022-12-06 09:08 | PM.OBPNVD ---
OB - PN: Subj Subjective Date/time seen: 12/06/22 09:08 Narrative: Pain OK. Would like to go home. OB - PN: Obj Data Labs 12/05/22 03:15 12/03/22 18:26 OB - PN A/P Plan Comments: A: PPD#2, doing well. P: Home to f/u 6 weeks. Exam Psych: Other: AVSS ABD soft, nontender, fundus firm EXT nontender
== END 2022-12-06 12:30 | disposition home or self-care (01) | DRG 807 ==
LOC: ANHLDR 12-04 11:58 → ANHOB2 12-04 14:36
PROVIDERS: Admitting Provider Obstetrics & Gynecology; Visit Provider Obstetrics & Gynecology
DX: O10.92 Unspecified pre-existing hypertension complicating childbirth (principal); Z37.0 Single live birth; Z3A.38 38 weeks gestation of pregnancy; O62.3 Precipitate labor; O69.81X0 Labor and delivery complicated by cord around neck, without compression, not applicable or unspecified
CPT/HCPCS: 36415; 80053; 84550; 85014; 85018; 85025; 86592; 86850; 86900; 86901; A9270; J2590; J2795; J7120

== ENCOUNTER 2023-06-20 13:13 | Outpatient (CLI) | payer BC, SELFPAY ==
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
== END 2023-06-20 13:14 ==
PROVIDERS: Visit Provider Chiropractor
DX: M54.2 Cervicalgia (principal); M54.6 Pain in thoracic spine; V89.2XXD Person injured in unspecified motor-vehicle accident, traffic, subsequent encounter
CPT/HCPCS: 72040; 72070